=== PATIENT | female | born 1965 | race Caucasian/White ===

== ENCOUNTER 2021-04-26 18:29 | Inpatient (IN) | payer OTHER ==
[~2021-04-26] VITALS: Ht 167.6 cm; Wt 125.6 kg
[2021-04-26 18:44] VITALS: BP 117/78
[2021-04-26] MEDS ORDERED: ASPIRIN 81 MG TAB.CHEW PO ONE (19:05)
[2021-04-26 19:42] LABS: BASOPHILS # (AUTO) 0.2 K/uL (0.00-0.22); BASOPHILS % (AUTO) 1.6 % (0.0-2.0); EOSINOPHILS # (AUTO) 0.3 K/uL (0-0.4); HEMATOCRIT 36.5 % (36-48); HEMOGLOBIN 12.5 g/dL (12.0-16.0); LYMPHOCYTES # (AUTO) 2.7 K/uL (2.5-16.5); LYMPHOCYTES % (AUTO) 25.2 % (20.5-51.1); MEAN CORPUSCULAR HEMOGLOBIN 31 pg (27-31); MEAN CORPUSCULAR HGB CONC 34 g/dL (33-37); MEAN CORPUSCULAR VOLUME 89.3 fL (80-94); MONOCYTES # (AUTO) 0.5 K/uL (0.8-1.0); MONOCYTES % (AUTO) 4.9 % (1.7-9.3); NEUTROPHILS % (AUTO) 65.3 % (42.2-75.2); PLATELET COUNT (AUTO) 231 K/uL (140-450); RED BLOOD CELL COUNT(AUTO) 4.08 MIL/uL (4.20-5.40); RED CELL DISTRIBUTION WIDTH 13.5 % (11.6-13.7); WHITE BLOOD COUNT (AUTO) 10.7 K/uL (4.8-10.8)
[2021-04-26 19:58] LABS: ALBUMIN 4.3 g/dL (3.4-5.0); ANION GAP 14.3 (8-16); CARBON DIOXIDE 25.5 mmol/L (21-32); POTASSIUM 3.8 mmol/L (3.5-5.1); TOTAL BILIRUBIN 0.4 mg/dL (0.0-1.0)
[2021-04-26] MEDS ORDERED: ONDANSETRON 4 MG/2 ML VIAL IVP PRN (23:45)
[2021-04-27] MEDS: MORPHINE SULFATE 2 MG/ML SYR IVP PRN (05:52)
[2021-04-27 06:12] LABS: BASOPHILS % (AUTO) 0.4 % (0.0-2.0); EOSINOPHILS # (AUTO) 0.4 K/uL (0-0.4); EOSINOPHILS % (AUTO) 3.9 % (0.0-4.0); HEMATOCRIT 34.4 % (36-48); HEMOGLOBIN 11.8 g/dL (12.0-16.0); LYMPHOCYTES # (AUTO) 3.6 K/uL (2.5-16.5); LYMPHOCYTES % (AUTO) 35.1 % (20.5-51.1); MEAN CORPUSCULAR HEMOGLOBIN 31 pg (27-31); MEAN CORPUSCULAR HGB CONC 34 g/dL (33-37); MEAN CORPUSCULAR VOLUME 91.3 fL (80-94); MONOCYTES # (AUTO) 0.7 K/uL (0.8-1.0); MONOCYTES % (AUTO) 6.7 % (1.7-9.3); NEUTROPHILS # (AUTO) 5.5 K/uL (1.8-7.7); NEUTROPHILS % (AUTO) 53.9 % (42.2-75.2); PLATELET COUNT (AUTO) 208 K/uL (140-450); RED BLOOD CELL COUNT(AUTO) 3.77 MIL/uL (4.20-5.40); RED CELL DISTRIBUTION WIDTH 13.8 % (11.6-13.7); WHITE BLOOD COUNT (AUTO) 10.2 K/uL (4.8-10.8)
[2021-04-27 06:43] LABS: CARBON DIOXIDE 24.5 mmol/L (21-32); POTASSIUM 3.5 mmol/L (3.5-5.1)
[2021-04-27] MEDS ORDERED: TOP25 PO (06:43)
[2021-04-27] MEDS ORDERED: LEVE1000 PO (06:43)
[2021-04-27] MEDS ORDERED: BENA20TA PO (06:43)
[2021-04-27] MEDS ORDERED: GLIP5TER PO (06:43)
[2021-04-27 08:00] VITALS: BP 102/68
[2021-04-27] MEDS: ASPIRIN 81 MG TAB.CHEW PO SCH ×2 (09:44→09:51)
[2021-04-27] MEDS: PANTOPRAZOLE 40 MG INJ VIAL IVP SCH (13:42)
[2021-04-27] MEDS: ACETAMINOPHEN 325 MG TAB PO PRN ×2 (13:48→20:49)
[2021-04-27] MEDS ORDERED: DEXTROSE 50% 50 ML SYR IVP PRN (13:55)
[2021-04-27] MEDS: INSULIN LISPRO SLIDING SCALE 100 UNITS/ML VIAL SUBQ PRN ×2 (14:05→20:52)
[2021-04-27 16:00] VITALS: BP 120/68
[2021-04-27 20:00] VITALS: BP 98/61
[2021-04-27] MEDS: TOPIRAMATE 25 MG TAB PO SCH (20:50)
[2021-04-27] MEDS: AMITRIPTYLINE 10 MG TAB PO SCH (20:50)
[2021-04-27] MEDS: levETIRAcetam 500 MG TAB PO SCH (20:50)
[2021-04-28] VITALS: BP 98/52
[2021-04-28 04:00] VITALS: BP 98/60
[2021-04-28] MEDS: BLOOD GLUCOSE MONITORING 1 DEV DEV FS SCH ×4 (05:57→20:48)
[2021-04-28 08:00] VITALS: BP 119/71
[2021-04-28] MEDS: BENAZEPRIL 20 MG TAB PO SCH (08:14)
[2021-04-28] MEDS: SENNA 8.6 MG TAB PO SCH (08:15)
[2021-04-28] MEDS: TOPIRAMATE 25 MG TAB PO SCH ×2 (08:16→20:47)
[2021-04-28] MEDS: glipiZIDE ER 5 MG TABER PO SCH (08:17)
[2021-04-28] MEDS: levETIRAcetam 500 MG TAB PO SCH ×2 (08:17→20:47)
[2021-04-28] MEDS: PANTOPRAZOLE 40 MG INJ VIAL IVP SCH (08:19)
[2021-04-28 12:00] VITALS: BP 112/68
[2021-04-28] MEDS: INSULIN LISPRO SLIDING SCALE 100 UNITS/ML VIAL SUBQ PRN ×2 (12:29→20:49)
[2021-04-28 16:00] VITALS: BP 98/56
[2021-04-28] MEDS: ACETAMINOPHEN 325 MG TAB PO PRN (16:49)
[2021-04-28 20:00] VITALS: BP 123/69
[2021-04-28] MEDS: AMITRIPTYLINE 10 MG TAB PO SCH (20:47)
[2021-04-28] MEDS: MORPHINE SULFATE 2 MG/ML SYR IVP PRN (23:19)
[2021-04-29] VITALS: BP 107/77
[2021-04-29 04:00] VITALS: BP 106/60
[2021-04-29] MEDS: BLOOD GLUCOSE MONITORING 1 DEV DEV FS SCH ×2 (05:44→11:31)
[2021-04-29] MEDS: INSULIN LISPRO SLIDING SCALE 100 UNITS/ML VIAL SUBQ PRN ×2 (05:48→11:35)
[2021-04-29 08:00] VITALS: BP 104/66
[2021-04-29] MEDS: levETIRAcetam 500 MG TAB PO SCH (08:14)
[2021-04-29] MEDS: ASPIRIN 81 MG TAB.CHEW PO SCH (08:14)
[2021-04-29] MEDS: glipiZIDE ER 5 MG TABER PO SCH (08:15)
[2021-04-29] MEDS: TOPIRAMATE 25 MG TAB PO SCH (08:15)
[2021-04-29] MEDS: SENNA 8.6 MG TAB PO SCH (08:15)
[2021-04-29] MEDS: BENAZEPRIL 20 MG TAB PO SCH (08:16)
[2021-04-29] MEDS: PANTOPRAZOLE 40 MG INJ VIAL IVP SCH (08:17)
[2021-04-29] MEDS ORDERED: PANT40EC PO (11:51)
[2021-04-29 12:00] VITALS: BP 103/61
[2021-04-29 13:15] LABS: BASOPHILS % (AUTO) 0.5 % (0.0-2.0); EOSINOPHILS # (AUTO) 0.2 K/uL (0-0.4); EOSINOPHILS % (AUTO) 3.1 % (0.0-4.0); HEMATOCRIT 34.9 % (36-48); LYMPHOCYTES # (AUTO) 1.9 K/uL (2.5-16.5); LYMPHOCYTES % (AUTO) 26.5 % (20.5-51.1); MEAN CORPUSCULAR HEMOGLOBIN 31 pg (27-31); MEAN CORPUSCULAR HGB CONC 34 g/dL (33-37); MEAN CORPUSCULAR VOLUME 90.6 fL (80-94); MONOCYTES # (AUTO) 0.4 K/uL (0.8-1.0); MONOCYTES % (AUTO) 5.2 % (1.7-9.3); NEUTROPHILS # (AUTO) 4.7 K/uL (1.8-7.7); NEUTROPHILS % (AUTO) 64.7 % (42.2-75.2); PLATELET COUNT (AUTO) 202 K/uL (140-450); RED BLOOD CELL COUNT(AUTO) 3.85 MIL/uL (4.20-5.40); RED CELL DISTRIBUTION WIDTH 13.6 % (11.6-13.7); WHITE BLOOD COUNT (AUTO) 7.3 K/uL (4.8-10.8)
[2021-04-29 13:22] LABS: ALBUMIN 3.6 g/dL (3.4-5.0); ANION GAP 14.1 (8-16); CREATININE 0.9 mg/dL (0.6-1.3); POTASSIUM 4.1 mmol/L (3.5-5.1); TOTAL BILIRUBIN 0.2 mg/dL (0.0-1.0)
== END 2021-04-29 13:37 | disposition home or self-care (01) | DRG 203 ==
LOC: MED 18:29 → MTU 23:47 → OBSVTOIN 04-28 11:29
PROVIDERS: ADMIT Hospitalist; ATTEND Hospitalist
DX: R07.89 Other chest pain (principal); E66.01 Morbid (severe) obesity due to excess calories; E11.9 Type 2 diabetes mellitus without complications; G40.909 Epilepsy, unspecified, not intractable, without status epilepticus; I10 Essential (primary) hypertension; Z90.710 Acquired absence of both cervix and uterus; Z83.3 Family history of diabetes mellitus; Z82.49 Family history of ischemic heart disease and other diseases of the circulatory system; Z68.41 Body mass index [BMI] 40.0-44.9, adult
CPT/HCPCS: G0378 ×36; 36415; 71045; 74022; 80048; 80053; 82948; 83036; 83735; 83880; 84443; 84484; 85025; 93005; C9113; J1815; J2270

== ENCOUNTER 2021-10-21 20:37 | Emergency (ER) | payer OTHER ==
[~2021-10-21 20:37] MED LIST: BENA20TA PO; GLIP5TER PO; LEVE1000 PO; PANT40EC PO; TOP25 PO
--- NOTE | 2021-10-21 21:32 | NUR ---
CALLED IN LOBBY AND OUTSIDE WITH NO ANSWER
--- NOTE | 2021-10-21 21:59 | NUR ---
CALLED IN LOBBY, OUTSIDEM AND ON PERSONAL CELLPHONE WITH NO ANSWER. PATIENT LEFT WITHOUT BEING SEEN BY DR. BECK. NO FURTHER CARE PROVIDED FOR PATIENT.
--- NOTE | 2021-10-21 22:01 | NUR ---
PT RETURNED CALL AND STATED SHE LEFT HOME.
== END 2021-10-21 21:59 | disposition left against medical advice (07) ==
LOC: MED 20:37
DX: R68.83 Chills (without fever) (principal); M79.10 Myalgia, unspecified site; R50.9 Fever, unspecified; Z53.21 Procedure and treatment not carried out due to patient leaving prior to being seen by health care provider